=== PATIENT | female | born 1960 | race Caucasian/White ===

== ENCOUNTER 2017-05-30 09:14 | Emergency (ER) | payer OTHER ==
[2017-05-30 09:50] LABS: Absolute Lymphocytes (CBC) 1.1 K/uL (0.7-4.9); Absolute Monocytes 0.6 K/uL (0.1-1.3); Absolute Neutrophil 6.5 K/uL (1.8-8.0); Basophils % 0.3 % (0-1.3); Eosinophils % 0.6 % (0-4.4); Hematocrit 32.5 % (36.0-45.0); Lymphocytes % 13.6 % (15.3-44.8); MCH 25.2 pg (27.0-35.0); MCV 78.4 fL (80-100); MPV 9.5 fL (7.6-11.3); Monocytes % 7.1 % (3.3-12.3); RBC Red Blood Cell Count 4.14 M/uL (3.86-4.86)
[2017-05-30 10:02] LABS: Potassium 3.3 mEq/L (3.6-5.0)
[2017-05-30 10:08] LABS: Albumin 4.2 g/dL (3.2-5.5); Bilirubin Direct 0.2 mg/dL (0-0.2); Bilirubin Total 0.8 mg/dL (0.3-1.2); Protein, Total 7.6 g/dL (6.0-8.3)
[2017-05-30] MEDS ORDERED: MORPHINE 4 MG/ML SYR ONE (10:20)
[2017-05-30] MEDS ORDERED: ONDANSETRON 4 MG/2 ML VIAL ONE (10:21)
[2017-05-30] MEDS ORDERED: NA CHLORIDE 0.9% 1,000 ML ONE (10:21)
[2017-05-30 10:27] LABS: Urine Bacteria <20 /HPF (<20); Urine Culture Reflex Order NOT NEEDED; Urine RBC <5 /HPF (NONE SEEN)
[2017-05-30 10:27] LABS: Urine Blood NEGATIVE (NEG); Urine Glucose NEGATIVE (NEG); Urine Protein NEGATIVE (NEG); Urine Specific Gravity 1.015 (1.005-1.030); Urine pH 8.5 (5.0-7.0)
--- NOTE | 2017-05-30 11:20 | RAD REPORT ---
EXAM DESCRIPTION: US - Abdomen Exam Limited - 05/30/2017 9:54 am CLINICAL HISTORY: Abdominal pain. COMPARISON: None. FINDINGS: The gallbladder demonstrates multiple shadowing gallstones, predominately in the neck marilynn on. No pericholecystic fluid or gallbladder wall thickening. The common bile duct is normal measuring 5 mm. The liver demonstrates no findings of intrahepatic biliary dilatation. IMPRESSION: Cholelithiasis.
--- NOTE | 2017-05-30 11:24 | ER ---
Nurse's Notes [facility] Name: Patt Nielsen Age: 57 yrs Sex: Female : 1960 Arrival Date: 05/30/2017 Time: 09:22 Bed 14 Private MD: Diagnosis: Cholelithiasis Presentation: 05/30 09:26 Presenting complaint: EMS states: pt c/o pain in her right upper back x1 month and then jl7 in her right side since 0400 this morning. She c/o nausea, denies V/D. VSS. Transition of care: patient was not received from another setting of care. Onset of symptoms was May 30, 2017 at 04:00. Care prior to arrival: IV initiated. 20 GA, in the right antecubital area. 09:26 Method Of Arrival: EMS: [facility] jl 09:26 Acuity: KELSIE 3 jl7 Historical: - Allergies: 09:30 PENICILLINS; jl7 09:30 Sulfa (Sulfonamide Antibiotics); jl7 - Home Meds: 09:30 Lexapro Oral [Active]; valsartan oral oral [Active]; jl7 11:05 atorvastatin 10 mg oral tab 1 tab once daily [Active]; diphenhydramine HCl 25 mg Oral jtb cap [Active]; omeprazole 20 mg Oral cpDR [Active]; escitalopram oxalate 20 mg oral tab 1 tab once daily [Active]; ibuprofen 800 mg Oral tab [Active]; - PMHx: 09:30 Hypertension; jl7 - PSHx: 09:30 Hysterectomy; Lap band; jl7 - Immunization history:: Adult Immunizations not up to date. - Social history:: Smoking status: Patient/guardian denies using tobacco. Screenin:25 Abuse screen: Denies threats or abuse. Denies injuries from another. Nutritional jtb screening: No deficits noted. Tuberculosis screening: No symptoms or risk factors identified. Fall Risk None identified. Assessment: 09:25 General: Appears in no apparent distress. uncomfortable, Behavior is cooperative, jtb appropriate for age. Pain: Complains of pain in low back area Pain radiates to right lower quadrant Pain currently is 7 out of 10 on a pain scale. at worst was 10 out of 10 on a pain scale. Quality of pain is described as crampy, dull, Pain began 0430 this morning Is continuous. Neuro: Level of Consciousness is awake, alert, obeys commands, Oriented to person, place, time, situation. Cardiovascular: Patient's skin is warm and dry. Respiratory: Airway is patent Respiratory effort is even, unlabored, Respiratory pattern is regular, symmetrical. GI: Abdomen is flat, Bowel sounds present X 4 quads. Abd is soft and non tender X 4 quads. : No signs and/or symptoms were reported regarding the genitourinary system. EENT: No signs and/or symptoms were reported regarding the EENT system. Derm: Skin is intact, Skin is pink, warm \T\ dry. Musculoskeletal: No signs and/or symptoms reported regarding the musculoskeletal system. 10:04 Reassessment: Patient is alert, oriented x 3, equal unlabored respirations, skin jl7 warm/dry/pink. Pt is back from CT. Medications administered. Pt is laying in bed with guest at the bedside. 10:55 Reassessment: Patient is alert, oriented x 3, equal unlabored respirations, skin jtb warm/dry/pink. Pt reports a decrease in pain to 5/10. 11:23 Reassessment: Provider at bedside discussing plan of care. jl7 Vital Signs: 09:30 BP 111 / 85; Pulse 81; Resp 16; Temp 97.8; Pulse Ox 97% ; Weight 108.86 kg; Height 5 jl7 ft. 4 in. (162.56 cm); Pain 7/10; 10:04 BP 126 / 82; Pulse 85; Resp 22 S; Pulse Ox 95% on R/A; Pain 9/10; jl7 10:10 BP 97 / 75; Pulse 103; Resp 20 S; Pulse Ox 100% on R/A; jl7 10:55 BP 107 / 81; Pulse 85; Resp 20 S; Pulse Ox 98% on R/A; Pain 5/10; jtb 11:37 BP 111 / 60; Pulse 84; Resp 16 S; Pulse Ox 98% on R/A; Pain 5/10; jtb 09:30 Body Mass Index 41.20 (108.86 kg, 162.56 cm) jl7 ED Course: 09:22 Patient arrived in ED. jl7 09:25 Gloria Spain [facility]C [facility] kb 09:25 Justo Jang MD is Attending Physician. kb 09:25 Maintain EMS IV. Dressing intact. Good blood return noted. Flushed right antecubital jtb with 5 ml normal saline. 09:29 Triage completed. jl7 09:30 Arm band placed on right wrist. jl7 09:32 Pedro Barton, RN is Primary Nurse. jl7 09:33 Ultrasound completed. Patient tolerated well. sg3 09:33 Amylase, Serum Sent. mh5 09:33 Basic Metabolic Panel Sent. mh5 09:33 CBC with Diff Sent. 5 09:33 Hepatic Function Sent. 5 09:34 Bed in low position. Call light in reach. Side rails up X2. Placed in gown. Warm 5 blanket given. Pulse ox on. NIBP on. 09:34 Lipase Sent. 5 09:34 Initial lab(s) drawn, by me, sent to lab. 5 11:38 No provider procedures requiring assistance completed. IV discontinued, intact, jtb bleeding controlled. Administered Medications: 10:05 Drug: NS 0.9% 1000 ml Route: IV; Rate: 1000 ml; Site: right antecubital; jl7 11:00 Follow up: Response: No adverse reaction; IV Status: Completed infusion jl7 10:06 Drug: Zofran 4 mg Route: IVP; Site: right antecubital; jl7 11:00 Follow up: Response: No adverse reaction; Nausea is decreased jl7 10:08 Drug: morphine 4 mg Route: IVP; Site: right antecubital; jl7 10:45 Follow up: Response: No adverse reaction; Pain is decreased jl7 11:27 Drug: [place] 10 mg-325 mg 1 tabs Route: PO; jl7 11:39 Follow up: Response: Medication administered at discharge. jl7 11:28 Drug: Potassium Chloride 20 mEq Route: PO; jl7 11:39 Follow up: Response: Medication administered at discharge. jl7 Outcome: 11:24 Discharge ordered by . kb 11:38 Discharged to home ambulatory. jtb 11:38 Condition: stable 11:38 Discharge instructions given to patient, family, Instructed on discharge instructions, follow up and referral plans. medication usage, Demonstrated understanding of instructions, follow-up care, medications, Prescriptions given X 2. 11:38 Attestation : I agree with everything documented by Fabian Glover, Student Nurse. jl7 11:39 Patient left the ED. jtb Signatures: Gloria Spain, DENTAL HYGIENE TEACHERDenilsonC DENTAL HYGIENE TEACHER-Therese Marr 5 Pedro Barton RN RN jl7 Mariza Hood 3 Fabian Glover j Corrections: (The following items were deleted from the chart) 10:20 10:16 Reassessment: Patient is alert, oriented x 3, equal unlabored respirations, skin jl7 warm/dry/pink. Pt is back from CT. Medications administered. Pt is laying in bed with guest at the bedside. jl7
--- NOTE | 2017-05-30 11:25 | EDPHYS ---
Physician Documentation [facility] Name: Patt Nielsen Age: 57 yrs Sex: Female : 1960 Arrival Date: 05/30/2017 Time: 09:22 Bed 14 Private MD: ED Physician Justo Jang HPI: 05/30 09:25 This 57 yrs old Female presents to ER via Unassigned with complaints of kb Abdominal Pain. 09:25 The patient presents with abdominal pain in the right upper quadrant. Onset: The kb symptoms/episode began/occurred this morning. The symptoms do not radiate. Associated signs and symptoms: Pertinent positives: nausea. The symptoms are described as constant. Modifying factors: The symptoms are alleviated by nothing, the symptoms are aggravated by pressure. Severity of pain: At its worst the pain was moderate severe in the emergency department the pain is unchanged. The patient has not experienced similar symptoms in the past. The patient has not recently seen a physician. Pt reports right flank pain for a month, RUQ pain this morning. Denies vomiting, diarrhea, fever. Historical: - Allergies: 09:30 PENICILLINS; jl7 09:30 Sulfa (Sulfonamide Antibiotics); jl7 - Home Meds: 09:30 Lexapro Oral [Active]; valsartan oral oral [Active]; jl7 11:05 atorvastatin 10 mg oral tab 1 tab once daily [Active]; diphenhydramine HCl 25 mg Oral jtb cap [Active]; omeprazole 20 mg Oral cpDR [Active]; escitalopram oxalate 20 mg oral tab 1 tab once daily [Active]; ibuprofen 800 mg Oral tab [Active]; - PMHx: 09:30 Hypertension; jl7 - PSHx: 09:30 Hysterectomy; Lap band; jl7 - Immunization history:: Adult Immunizations not up to date. - Social history:: Smoking status: Patient/guardian denies using tobacco. ROS: 09:27 Constitutional: Negative for fever, chills, and weight loss, Cardiovascular: Negative kb for chest pain, palpitations, and edema, Respiratory: Negative for shortness of breath, cough, wheezing, and pleuritic chest pain, : Negative for injury, bleeding, discharge, and swelling, MS/Extremity: Negative for injury and deformity, Skin: Negative for injury, rash, and discoloration, Neuro: Negative for headache, weakness, numbness, tingling, and seizure. 09:27 Abdomen/GI: Positive for abdominal pain, nausea, Negative for vomiting, diarrhea, constipation, abdominal cramps, abdominal distension, anorexia. 09:27 Back: Positive for flank pain, on the right. Exam: 09:27 Constitutional: This is a well developed, well nourished patient who is awake, alert, kb and in no acute distress. Head/Face: Normocephalic, atraumatic. Chest/axilla: Normal chest wall appearance and motion. Nontender with no deformity. No lesions are appreciated. Cardiovascular: Regular rate and rhythm with a normal S1 and S2. No gallops, murmurs, or rubs. Normal PMI, no JVD. No pulse deficits. Respiratory: Lungs have equal breath sounds bilaterally, clear to auscultation and percussion. No rales, rhonchi or wheezes noted. No increased work of breathing, no retractions or nasal flaring. Back: No spinal tenderness. No costovertebral tenderness. Full range of motion. Skin: Warm, dry with normal turgor. Normal color with no rashes, no lesions, and no evidence of cellulitis. MS/ Extremity: Pulses equal, no cyanosis. Neurovascular intact. Full, normal range of motion. Neuro: Awake and alert, GCS 15, oriented to person, place, time, and situation. Cranial nerves II-XII grossly intact. Motor strength 5/5 in all extremities. Sensory grossly intact. Cerebellar exam normal. Normal gait. 09:27 Abdomen/GI: Inspection: abdomen appears normal, Bowel sounds: normal, in all quadrants, Palpation: soft, in all quadrants, moderate abdominal tenderness, in the right upper quadrant. Vital Signs: 09:30 BP 111 / 85; Pulse 81; Resp 16; Temp 97.8; Pulse Ox 97% ; Weight 108.86 kg; Height 5 jl7 ft. 4 in. (162.56 cm); Pain 7/10; 10:04 BP 126 / 82; Pulse 85; Resp 22 S; Pulse Ox 95% on R/A; Pain 9/10; jl7 10:10 BP 97 / 75; Pulse 103; Resp 20 S; Pulse Ox 100% on R/A; jl7 10:55 BP 107 / 81; Pulse 85; Resp 20 S; Pulse Ox 98% on R/A; Pain 5/10; jtb 11:37 BP 111 / 60; Pulse 84; Resp 16 S; Pulse Ox 98% on R/A; Pain 5/10; jtb 09:30 Body Mass Index 41.20 (108.86 kg, 162.56 cm) jl7 MDM: 09:26 Patient medically screened. kb 09:27 Data reviewed: vital signs, nurses notes. Data interpreted: Pulse oximetry: on room air kb is 100 %. Interpretation: normal. 11:22 Counseling: I had a detailed discussion with the patient and/or guardian regarding: the kb historical points, exam findings, and any diagnostic results supporting the discharge/admit diagnosis, lab results, radiology results, the need for outpatient follow up, a general surgeon, to return to the emergency department if symptoms worsen or persist or if there are any questions or concerns that arise at home. 05/30 09:26 Order name: Amylase, Serum kb 05/30 09:26 Order name: Basic Metabolic Panel kb 05/30 09:26 Order name: CBC with Diff kb 05/30 09:26 Order name: Hepatic Function kb 05/30 09:26 Order name: Lipase kb 05/30 09:26 Order name: Urine Microscopic Only kb 05/30 09:54 Order name: CBC with Automated Diff; Complete Time: 09:54 EDMS 05/30 10:02 Order name: Basic Metabolic Panel; Complete Time: 10:10 EDMS 05/30 10:02 Order name: Lipase; Complete Time: 10:10 EDMS 05/30 10:09 Order name: Liver (Hepatic) Function; Complete Time: 10:10 EDMS 05/30 10:09 Order name: Amylase Level; Complete Time: 10:10 EDMS 05/30 10:12 Order name: Urine Dipstick--Ancillary (enter results) ag 05/30 10:28 Order name: Urine Microscopic Only; Complete Time: 10:29 EDMS 05/30 10:28 Order name: Urine Dipstick-Ancillary; Complete Time: 10:29 EDMS 05/30 09:26 Order name: IV Saline Lock; Complete Time: 09:32 kb 05/30 09:26 Order name: Labs collected and sent; Complete Time: 09:32 kb 05/30 09:26 Order name: Urine Dipstick-Ancillary (obtain specimen); Complete Time: 10:06 kb 05/30 09:26 Order name: US Abdomen Limited kb 05/30 11:21 Order name: US; Complete Time: 11:22 EDMS Administered Medications: 10:05 Drug: NS 0.9% 1000 ml Route: IV; Rate: 1000 ml; Site: right antecubital; jl7 11:00 Follow up: Response: No adverse reaction; IV Status: Completed infusion jl7 10:06 Drug: Zofran 4 mg Route: IVP; Site: right antecubital; jl7 11:00 Follow up: Response: No adverse reaction; Nausea is decreased jl7 10:08 Drug: morphine 4 mg Route: IVP; Site: right antecubital; jl7 10:45 Follow up: Response: No adverse reaction; Pain is decreased jl7 11:27 Drug: [place] 10 mg-325 mg 1 tabs Route: PO; jl7 11:39 Follow up: Response: Medication administered at discharge. jl7 11:28 Drug: Potassium Chloride 20 mEq Route: PO; jl7 11:39 Follow up: Response: Medication administered at discharge. [facility] Disposition: 05/31 10:34 Co-signature as Attending Physician, Justo Jang MD I agree with the assessment and katya plan of care. Disposition: 05/30/17 11:24 Discharged to Home. Impression: Cholelithiasis. - Condition is Stable. - Discharge Instructions: Cholelithiasis, [id number]. - Prescriptions for Zofran 4 mg Oral Tablet - take 1 tablet by ORAL route every 6 hours As needed; 20 tablet. Diclofenac Sodium 75 mg Oral Tablet, Delayed Release (E.C.) - take 1 tablet by ORAL route 2 times per day As needed; 30 tablet. - Medication Reconciliation Form, Thank You Letter, Antibiotic Education, Prescription Opioid Use form. - Follow up: Emergency Department; When: As needed; Reason: Worsening of condition. Follow up: Private Physician; When: 2 - 3 days; Reason: Recheck today's complaints, Continuance of care, Re-evaluation by your physician. Signatures: Dispatcher [employer] EDMS Gloria Spain, ROTARY DRUM TANNER-C ELVI-Justo Todd MD MD cha Leal, Jahala, RN RN Fabian Borrego
[2017-05-30] MEDS ORDERED: POTASSIUM CL SA 10 MEQ TAB PO ONE (11:47)
[2017-05-30] MEDS ORDERED: HYDROCODONE/APAP 10/325 TAB ONE (11:48)
== END 2017-05-30 11:39 | disposition home or self-care (01) ==
LOC: ER 09:14
DX: K80.20 Calculus of gallbladder without cholecystitis without obstruction (principal); I10 Essential (primary) hypertension; Z88.0 Allergy status to penicillin; Z88.2 Allergy status to sulfonamides
CPT/HCPCS: 36415; 76705; 80048; 80076; 81003; 81015; 82150; 83690; 85025; 96361; 96374; 96375; 99284; J2405; J7030

== ENCOUNTER 2017-06-07 07:49 | Day surgery (SDC) | payer OTHER ==
--- NOTE | 2017-06-03 16:28 | RAD REPORT ---
EXAM DESCRIPTION: RADOP - Outpt Chest Pa/Lat (2 Views) - 06/03/2017 4:20 pm CLINICAL HISTORY: Abdominal pain COMPARISON: None. FINDINGS: The lungs are clear. The heart is normal in size. No displaced fractures. IMPRESSION: No acute or concerning finding suspected.
--- NOTE | 2017-06-03 16:47 | EKG ---
Test Date: 2017-06-03 Test Time: 16:08:36 State Manager: QUINN MEASUREMENT RESULTS: Intervals: Rate: 63 MT: 158 QRSD: 84 QT: 420 QTc: 429 [place]que[place]y: P: 63 MT: 158 QRS: 25 T: 41 INTERPRETIVE STATEMENTS: Normal sinus rhythm Low voltage QRS Borderline ECG No previous ECG available for comparison Electronically Signed On 06-03-17 16:46:31 CDT by French Wheat
[2017-06-07] MEDS ORDERED: Ringers Lactate 1,000 ML IV ONE (09:10)
[2017-06-07] MEDS ORDERED: CIPROFLOXACIN 400mg IV 400 MG/200 ML BAG IV ONE (09:11)
[2017-06-07 09:36] LABS: Bilirubin Direct 0.1 mg/dL (0-0.2); Bilirubin Total 0.5 mg/dL (0.3-1.2); Protein, Total 7.3 g/dL (6.0-8.3)
[2017-06-07] MEDS ORDERED: LIDOCAINE 1% MPF 5 ML VIAL ONE (09:43)
[2017-06-07] MEDS ORDERED: MIDAZOLAM HCL 2 MG/2 ML INJ ONE (09:43)
[2017-06-07] MEDS ORDERED: FENTANYL CITR 100 MCG/2 ML ONE (09:43)
[2017-06-07] MEDS ORDERED: PROPOFOL 200 MG/20 ML VIAL IV ONE (09:43)
[2017-06-07] MEDS ORDERED: ROCURONIUM 50 MG/5 ML VIAL IV ONE (09:44)
[2017-06-07] MEDS ORDERED: EPHEDRINE SULF 50 MG/5 ML SYR ONE (10:28)
--- NOTE | 2017-06-07 10:36 | P.BOP ---
Preoperative diagnosis: acute cholecystitis, symptomatic cholelithiasis, hx of obesity surgery Postoperative diagnosis: same, intrabdominal adhesions Primary procedure: 1. Laparoscopic cholecystectomy Secondary procedure: 2. Laparoscopic lysis of adhesions Electronic Service Technician: MARCELLA AVILA Estimated blood loss: <10cc Specimen: gb Findings: as above Anesthesia: General Complications: None Drain(s): Other Transferred to: Recovery Room Condition: Good
[2017-06-07] MEDS ORDERED: GLYCOPYRROLATE 0.2 MG/ML SYR ONE (10:41)
[2017-06-07] MEDS ORDERED: ONDANSETRON 4 MG/2 ML VIAL ONE (10:41)
[2017-06-07] MEDS ORDERED: KETOROLAC 30 MG/ML INJ ONE (10:41)
[2017-06-07] MEDS ORDERED: NEOSTIGMINE 1 MG/ML -5 ML SYRINGE ONE (10:44)
--- NOTE | 2017-06-07 21:10 | OP ---
Date of Procedure: 06/07/2017 Surgeon: Richard Thapa MD Ordained Minister: CYNDIE Cole. Preoperative Diagnoses: Acute cholecystitis, symptomatic cholelithiasis, history of obesity surgery, laparoscopic band. Postoperative Diagnoses: Acute cholecystitis, symptomatic cholelithiasis, history of obesity surgery , laparoscopic band plus extensive intraabdominal adhesions. Procedures: 1.Laparoscopic cholecystectomy. 2.Laparoscopic lysis of adhesions. Estimated Blood Loss: Less than 10 cc. Specimen: Gallbladder. Finding: As above. The patient had extensive adhesions between bowel and also stomach to the anteri or abdominal wall and liver to the anterior abdominal wall. We could not proceed with surgery until those adhesions were removed. We did that with EndoShears. This took significant amount of time. Anesthesia: General plus local. Indications: This is the case of a 57-year-old patient, who came to us with above diagnosis. Fully explained the benefits, alternatives, and risks of laparoscopic, possible open cholecystectomy which include, but not limited to infection, bleeding, damage to adjacent structures, anesthesia complicati on, choledocholithiasis, bile leak, pancreatitis, MN, and even . She also understands this may not relieve any symptoms. She might need more than one surgical intervention. She understood. Sign ed the consent. Description Of Procedure: The patient was brought to the operating room, placed in supine position. Anesthesia was done without complication. Abdominal area was prepped and draped in the usual steril e fashion. Marcaine 0.5% injected for local anesthetic, followed by sharp incision of skin in the in fraumbilical region. Incision was carried down to fascia, which was opened under direct vision. Per itoneum was encountered, opened under direct vision. Vicryl #1 placed inside the fascia. Marek tro car was carefully introduced. No bleeding was obtained. Immediately, we noticed extensive adhesions in the right upper quadrant. So, we picked an area that we can put a trocar in, and then I used End oShears connected to Bovie cauterizer. We proceeded to remove adhesions. It took significant amount of time but we were able to clear the area of the liver, the area of stomach down. We did not see a ny masses on any of those two areas. Also some of the intestines came down. We did not see any mass es in that area either. After that then sequentially we put 2 more trocars in the right upper quadra nt under direct visualization. The gallbladder looked distended, so we used an Endo needle to suctio n part of the bowel from that area under direct visualization. After that a grasper needle was remov ed. A grasper was placed in the fundus of the gallbladder and another grasper in the infundibulum, r etracted the gallbladder in the inferolateral fashion exposing the triangle of Calot and obtaining cr itical view. The cystic duct and cystic artery were clearly isolated free circumferentially and a co nnection between those and the gallbladder was clearly identified. I proceeded to ligate those by us ing at least 3 clips proximal, 1 clip distal, ligation in middle. Same was done with the cystic hernandez ry. No bile leak. No bleeding. The gallbladder was removed from liver using Bovie cauterizer and r emoved from abdominal cavity using an EndoCatch through the umbilical incision. The area was inspect ed once again. Liver fossa was intact. Clips were intact. No bile leak. No bleeding. The area of the lysis of adhesions looked intact too with no bleeding. At that moment, we proceeded to remove t he trocars under direct vision. It looked like the patient had a lap band in that area. The area wa s left intact without being touched. We removed the trocars under direct vision. Deflated the pneum operitoneum, closed the fascia with #1 Vicryl. Irrigated subcutaneous tissue and closed that with 3- 0 chromic and skin in a subcuticular fashion with 3-0 chromic and Steri-Strips on top. Sponge count and instrument counts were correct. The patient tolerated the procedure well. The patient was sent to recovery in stable condition. DISCHARGE SUMMARY Diagnoses: Acute cholecystitis, symptomatic cholelithiasis, history of obesity surgery, intraabdomin al adhesions. Procedure: Laparoscopic cholecystectomy with laparoscopic lysis of adhesions. Disposition: Home. Activity: As tolerated. No heavy lifting. Followup: Follow up in my office in 1 week. Call for appointment at [phone]. Keep area dry for 48 hours, then may shower. Keep Steri-Strips intact. Medications include Cipro 500 p.o. q.12 and Tyle nol No.3 q.4 hours p.r.n. pain. JUAN/RAJ Voice ID: [id number] Report ID: [id number]
== END 2017-06-07 11:20 | disposition home or self-care (01) ==
LOC: OR 07:49
PROVIDERS: ATTEND Surgery
PROC: 0DNW4ZZ Release Peritoneum, Percutaneous Endoscopic Approach (ICD-10-PCS; 2017-06-07)
PROC: 0FT44ZZ Resection of Gallbladder, Percutaneous Endoscopic Approach (ICD-10-PCS; principal; 2017-06-07 09:15)
DX: K80.12 Calculus of gallbladder with acute and chronic cholecystitis without obstruction (principal); K66.0 Peritoneal adhesions (postprocedural) (postinfection); I10 Essential (primary) hypertension; K21.9 Gastro-esophageal reflux disease without esophagitis; Z98.84 Bariatric surgery status; Z90.710 Acquired absence of both cervix and uterus; Z88.0 Allergy status to penicillin; Z88.2 Allergy status to sulfonamides; Z83.3 Family history of diabetes mellitus; Z82.49 Family history of ischemic heart disease and other diseases of the circulatory system
CPT/HCPCS: 36415; 71046; 80076; 82150; 83690; 88305; 93005; J0744; J2250; J2405; J2710; J3010